=== PATIENT | female | born 1995 | race Caucasian/White ===

== ENCOUNTER 2020-05-02 19:01 | Emergency (ER) | payer BC, OTHER ==
[~2020-05-02] VITALS: Ht 157.5 cm; Wt 111.4 kg
[~2020-05-02 19:01] MED LIST: CONCERTA 36 MG36 MG PO; MICROGESTIN FE1 TAB PO
[2020-05-02 19:15] VITALS: Ht 157.5 cm; Wt 111.4 kg
[2020-05-02] MEDS ORDERED: FERROUS SULFAT325 MG PO (19:16)
[2020-05-02 20:45] LABS: APTT 32.1 SECONDS (22.8-39.4); CALC OSMOLALITY 273 mosm/kg (275-300); CALCIUM 9.1 mg/dL (8.5-10.1); CARBON DIOXIDE 28.8 mmol/L (21.0-32.0); CHLORIDE - SERUM 102 mmol/L (98-107); GLUCOSE 101 mg/dL (74-106); INR 0.93 (0.85-1.17); POTASSIUM - SERUM 4.7 mmol/L (3.5-5.1); PROTIME 12.5 SECONDS (11.6-15.0); SODIUM 137 mmol/L (136-145); UREA NITROGEN 13 mg/dL (7-18); eGFR NON AFRICAN AMERICAN 72 mL/min (90-120)
[2020-05-02 20:46] LABS: D-DIMER-QUANTITATIVE 0.35 ug/mLFEU (0.20-0.54)
[2020-05-02 20:57] LABS: HEMATOCRIT 41.9 % (36.0-48.0); MCH 23.2 pg (26.0-34.0); MCV 74.7 fL (80.0-100.0); MEAN PLATELET VOLUME 10.1 fL (7.4-10.4); NEUTROPHILS 75.3 % (40-80); RBC 5.61 10x6/uL (4.00-5.40); RDW 13.8 % (11.5-14.5); WBC 10.1 10x3/uL (4.8-10.8)
[2020-05-02 20:58] LABS: PLATELET COUNT 266 10x3/uL (130-400)
[2020-05-02 21:20] LABS: ALBUMIN 3.7 g/dL (3.4-5.0); ALKALINE PHOSPHATASE 107 U/L (30-120); ALT (SGPT) 40 U/L (10-68); BILIRUBIN - TOTAL 0.58 mg/dL (0.2-1.3); CKMB 0.8 U/L (0.0-3.6); CREATINE KINASE 91 UL (21-215); MAGNESIUM - SERUM 2.2 mg/dL (1.8-2.4); PROTEIN - SERUM 8.2 g/dL (6.4-8.2)
[2020-05-02 21:22] LABS: TROPONIN-I < 0.017 ng/mL (0.000-0.060)
[2020-05-02 21:45] LABS: HCG SERUM NEGATIVE (NEGATIVE)
[2020-05-02] MEDS ORDERED: STERAPRED 5MG 65 M1 PO (23:20)
[2020-05-02 23:43] VITALS: BP 113/74
== END 2020-05-02 23:45 | disposition home or self-care (01) ==
LOC: D.ER 19:01
PROVIDERS: Family Medicine
DX: R07.89 Other chest pain (principal)